=== PATIENT | female | born 1935 | race Caucasian/White ===

== ENCOUNTER 2021-07-04 11:05 | Inpatient (IN) | payer MEDICARE, SELFPAY ==
[2021-07-04] VITALS (13 sets, daily range): BP systolic 115–166; BP diastolic 60–85; PULSE 90–121; RESP 9–36; TEMP 37.8–39.2; O2SAT 72–94; BMI 27.3
--- NOTE | 2021-07-04 11:06 | ED_ITS ---
HPI - SOB/Dyspnea General: Chief Complaint: ER Hold Stated Complaint: SOB Time Seen by Provider: 07/04/21 11:06 History of Present Illness: HPI Narrative: Ms Dietz is an 85-year-old lady without significant past medical or surgical history who presents the emergency department due to shortness of breath and Covid-like symptoms. Her significant other was tested positive about a week ago and lives in the same house. She endorses about 1 week of gradual onset of symptoms including headache, sinus pressure, generalized malaise, aches and pains, diarrhea, shortness of breath, and cough. Initially symptoms were fairly mild however progressively worsening and is now moderate to severe in intensity. Patient does not typically require oxygen and does not have a history of smoking or known lung disease. She was found to have oxygen saturations in the 70s and was placed on supplemental oxygen. She did receive a breathing treatment by EMS however quickly desaturates with oxygen removed and becomes tachypneic. No other significant changes in health, exacerbating or relieving factors identified. Onset (ago): day(s) Context: other Timing: progressively worsening Severity: moderate Exacerbating factors: exertion Relieving factors: oxygen Associated symptoms: Reports cough, myalgias and other Treatment prior to arrival: oxygen and bronchodilator Review of Systems General: Reports: 10 or more systems reviewed and unremarkable except in HPI and below PFSH ED PFSH: Medical History No significant past medical history Surgical History No significant past surgical history Family History Other No significant family history Social History (Updated 07/04/21 @ 17:14 by Daniel Glass MD) Smoking and tobacco status: never smoked Lives independently: Yes Household members: significant other Marital status: Single Physical Exam Const: COMMON NORMALS: alert GENERAL APPEARANCE: cooperative, well developed and ill appearing HENMT: COMMON NORMALS: normocephalic and atraumatic HEAD & SCALP: normocephalic and atraumatic THROAT: posterior oropharynx normal OTHER: Dry mucous membranes Eye: COMMON NORMALS: conjunctivae normal CONJUNCTIVA: Yes conjunctivae normal SCLERA: sclerae normal Neck/C-Spine: COMMON NORMALS: supple GENERAL: Yes trachea midline Resp: COMMON NORMALS: normal respiratory effort EFFORT & INSPECTION: Yes able to speak in complete sentences AUSCULTATION: rhonchi lower bilaterally Cardio: COMMON NORMALS: regular rate and regular rhythm RATE: regular rate RHYTHM: regular rhythm GI: COMMON NORMALS: Soft to palpation PALPATION: Yes Soft to palpation and No Tenderness to palpation present (GI) PERCUSSION: normal to percussion Extremity: GENERAL: Yes normal exam except as noted and No edema Neuro: COMMON NORMALS: moves all extremities SENSORIUM/ORIENTATION: Yes alert and No Orientation impaired Psych: COMMON NORMALS: mental status grossly normal and Normal thought process present THOUGHT PROCESS: Normal thought process present Course ED course: - Patient was seen and evaluated by me at bedside - Patient placed on cardiac monitors, IV access obtained - Initial evaluation notable for ill appearance, supplemental oxygen with respiratory distress - Labs notable for no leukocytosis, normal hemoglobin. Metabolic panel with evidence of dehydration, potassium replenishment ordered. Delta troponin is negative. CRP elevated with normal procalcitonin. Covid positive. - Imaging notable for multifocal pneumonia - Upon serial reexamination after treatment the patient was mildly improved on heated high flow oxygen - Based on patient history, evaluation, labs, and imaging as interpreted the most likely cause of the patient's condition is COVID-19 with acute hypoxic respiratory failure, dehydration, hypokalemia. - The results of ED evaluation were discussed with the patient including plan for admission due to requirement for level of care not available if discharged to prevent significant worsening/deterioration. - Hospitalist service contacted and agreed admit the patient. After discussion D-dimer was added and elevated, therefore CTA was ordered. - Patient was admitted without further deterioration or significant events. Note: Click bubbles or prepopulated benoit in note writing are used for assistance with data collection and billing and are inherently more limited than narrative and other text portions of this note. Please use narrative for additional clinical history and defer to narrative/free test for any case of contradictory information. If information appears in only free text or click bubble it should be considered present or absent as reported. Please contact note expert medical writer for clarifications of clinical information or contradictory information. MDM is a brief summary, contradictory or erroneous seeming information should be clarified and full note should be reviewed. Vital Signs: Vital signs: Vital Signs Temperature 97.6 F 07/09/21 20:00 Pulse Rate 101 H 07/09/21 21:10 Respiratory Rate 20 H 07/09/21 21:10 Blood Pressure 135/82 07/09/21 20:00 Pulse Oximetry 93 07/09/21 21:10 MDM - SOB/Dyspnea Medical Decision Making 85-year-old lady without baseline oxygen requirement presenting with respiratory distress found to be Covid positive. Patient placed on heated high flow oxygen. Admitted for further management. Medical Records I reviewed the patient's medical records. Lab Data I reviewed the patient's lab results. : 07/09/21 05:03 07/09/21 05:03 Labs/Radiology: Radiology Impressions Chest CTA 07/04/21 17:01 IMPRESSION: 1. Negative for pulmonary embolism. 2. Nonspecific scattered airspace disease in both lungs. 3. Commonly reported imaging features of COVID-19 pneumonia are present. Other processes such as influenza pneumonia and organizing pneumonia, as can be seen with drug toxicity and connective tissue disease, can cause a similar imaging pattern. (Reference: Hung) COMMENTS: Consistent with the [place] [employer]'s Incidental Findings Committee white paper (J Am Cody Radiol 2018): Any incidental renal lesion less than 1 cm or classified as too small to characterize, or any incidental cystic renal lesion characterized as simple-appearing, is likely benign. No follow-up imaging is recommended for these lesions per consensus recommendations based on imaging criteria. REFERENCES: Hung Nolasco et al., Radiological Society of [place] Expert Consensus Statement on Reporting Chest CT Findings Related to COVID-19. Endorsed by the Society of Thoracic Radiology, the [place] [employer], and RSNA. Published August 22, 2019. Chest X-Ray 07/09/21 04:00 IMPRESSION: Stable/improved abnormal chest as above. Laboratory Results WBC 8.4 10^3/uL (4.0-10.0) 07/04/21 13:25 RBC 4.92 10^6/uL (4.1-5.3) 07/04/21 13:25 Hgb 14.9 g/dL (11.5-15.3) 07/04/21 13:25 Hct 43.5 % (37.0-47.0) 07/04/21 13:25 MCV 88.4 fl (81-99) 07/04/21 13:25 MCH 30.3 pg (28.0-34.0) 07/04/21 13:25 MCHC 34.3 g/dL (30.0-36.0) 07/04/21 13:25 RDW 13.1 % (12.1-15.1) 07/04/21 13:25 Plt Count 300 10^3/cmm (130-400) 07/04/21 13:25 MPV 9.6 fL (7.4-10.4) 07/04/21 13:25 Neut % (Auto) 83.4 % 07/04/21 13:25 Lymph % (Auto) 13.4 % 07/04/21 13:25 [place] % (Auto) 2.3 % 07/04/21 13:25 Eos % (Auto) 0.0 % 07/04/21 13:25 Baso % (Auto) 0.4 % 07/04/21 13:25 Neut # (Auto) 6.98 10^3/uL (1.8-7.7) 07/04/21 13:25 Lymph # (Auto) 1.1 10^3/uL (0.8-4.8) 07/04/21 13:25 [place] # (Auto) 0.2 10^3/uL (0.2-0.9) 07/04/21 13:25 Eos # (Auto) 0.0 10^3/uL (0.0-0.8) 07/04/21 13:25 Baso # (Auto) 0.0 10^3/uL (0.0-0.1) 07/04/21 13:25 Nucleated RBC % (auto) 0 % 07/04/21 13:25 Nucleated RBCs # 0.0 /100WBC 07/04/21 13:25 Specimen Type Arterial 07/04/21 11:51 Sample Site Brachial, right 07/04/21 11:51 ABG pH 7.44 (7.35-7.45) 07/04/21 11:51 ABG pCO2 32.9 mmHg (35-45) L 07/04/21 11:51 ABG pO2 58.3 mmHg (80.0-100.0) L 07/04/21 11:51 ABG HCO3 22.4 mmol/L (22-26) 07/04/21 11:51 ABG Base Excess -0.9 mmol/L (-2.0-2.0) 07/04/21 11:51 Garcia Test N/a 07/04/21 11:51 Hematocrit 45.5 % (37-47) 07/04/21 11:51 O2 Delivery Device Nrb 07/04/21 11:51 O2 Liters/Min 15.0 % 07/04/21 11:51 Optical Laboratory Manager ID ccc 07/04/21 11:51 Sodium 134 mmol/L (136-145) L 07/04/21 13:25 Potassium 3.2 mmol/L (3.5-5.1) L 07/04/21 13:25 Chloride 95 mmol/L (98-107) L 07/04/21 13:25 Carbon Dioxide 22 mmol/L (22-29) 07/04/21 13:25 Anion Gap 20.2 (5-19) H 07/04/21 13:25 BUN 18 mg/dL (8-23) 07/04/21 13:25 Creatinine 0.6 mg/dL (0.5-0.9) 07/04/21 13:25 GFR Calculation Not Reportable 07/04/21 13:25 Glucose 170 mg/dL (65-115) H 07/04/21 13:25 Calculated Osmolality 284 mOsm/kg (285-295) L 07/04/21 13:25 Calcium 8.2 mg/dL (8.5-10.5) L 07/04/21 13:25 Total Bilirubin 0.6 mg/dL (0.15-1.2) 07/04/21 13:25 AST 57 U/L (0-32) H 07/04/21 13:25 ALT 36 U/L (0-33) H 07/04/21 13:25 Alkaline Phosphatase 63 IU/L (35-105) 07/04/21 13:25 Troponin T Baseline 26 ng/L (0-10) H 07/04/21 13:25 C-Reactive Protein 79.4 mg/L (0.0-4.9) H 07/04/21 13:25 NT-Pro-B Natriuret Pep 145 pg/mL (0-450) 07/04/21 13:25 Total Protein 5.7 g/dL (6.6-8.7) L 07/04/21 13:25 Albumin 3.6 g/dL (3.5-5.2) 07/04/21 13:25 Globulin 2.1 g/dL (1.3-4.6) 07/04/21 13:25 Procalcitonin 0.20 ng/mL (0-0.5) 07/04/21 13:25 Coronavirus 229E (PCR) Not detected (NOT DETECT) 07/04/21 13:25 SARS-CoV-2 (PCR) Detected (NOT DETECT) A 07/04/21 13:25 EKG Data EKG 1: I personally reviewed and interpreted this EKG as follows: EKG Interpretation Date: 07/04/21 EKG interpretation time: 13:25 Interpretation: Twelve-lead EKG shows a regular rhythm at a rate of 117. NH interval 164, cures duration 100, QTc 496. Unclear axis. Interpretation: Sinus tachycardia. Unable to interpret limb leads secondary to baseline wander due to tachypnea EKG 2: I personally reviewed and interpreted this EKG as follows: EKG Interpretation Date: 07/04/21 EKG interpretation time: 16:25 Interpretation: Twelve-lead EKG shows a regular rhythm at a rate of 96. NH interval 170, QRS duration 102, QTc 396. Normal axis. Interpretation: Sinus rhythm. EKG 3: I personally reviewed and interpreted this EKG as follows: EKG Interpretation Date: 07/04/21 EKG interpretation time: 19:03 Interpretation: Twelve-lead EKG shows a regular rhythm at a rate of 96. NH interval 195, QRS duration 100, QTc 401. Normal axis. Interpretation: Sinus rhythm. Discharge Plan Discharge Patient Disposition: Admitted As Inpatient Admit Provider: Daneil Glass Clinical Impression: Acute respiratory failure with hypoxia, COVID-19 Condition: Stable Coding Level of Care Code ED Office Technician for Chg Fwd Exam Comprehensive
--- NOTE | 2021-07-04 11:35 | XRR_ITS ---
PROCEDURE INFORMATION: Exam: XR Chest Exam date and time: 07/04/2021 11:35 AM Age: 85 years old Clinical indication: Shortness of breath; Additional info: Covid TECHNIQUE: Imaging protocol: XR of the chest. Views: 1 view. COMPARISON: No relevant prior studies available. FINDINGS: Lungs: There is increased lung markings and bilateral airspace opacities, consistent with multifocal pneumonia. Pleural spaces: Unremarkable. No pleural effusion. No pneumothorax. Heart/Mediastinum: Mildly enlarged heart. Bones/joints: Degenerative changes of the spine seen. XR/XR chest 1V portable [id number] IMPRESSION: Imaging findings of multifocal pneumonia.
--- NOTE | 2021-07-04 11:35 | ECG_ITS ---
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 Measurements Intervals [place] Rate: 117 P: 47 [place]: 164 QRS: -12 QRSD: 100 T: -84 QT: 426 QTc: 597 Interpretive Statements SINUS TACH[address] ST DEVIATION AND MODERATE T-WAVE ABNORMALITY, CONSIDER INFERIOR ISCHEMIA [-0.1+ mV T-WAVE IN II/aVF] No previous ECG available for comparison Electronically Signed On 07-05-2021 17:01:20 ROBOT OPERATOR by Alina Sullivan M.D. [id number]
[2021-07-04 12:02] LABS: ABG PCO2 32.9 mmHg (35-45); ABG PH Result 7.44 (7.35-7.45); Arterial Blood Gas Hematocrit 45.5 % (37-47); Base Excess ABG -0.9 mmol/L (-2.0-2.0); Blood Gas Sample Site Brachial, right; Blood Gas Sample Type Arterial; HCO3 ABG 22.4 mmol/L (22-26); Oxygen Device NRB; PO2 ABG 58.3 mmHg (80.0-100.0)
[2021-07-04 13:33] LABS: Basophils % 0.4 %; Hematocrit 43.5 % (37.0-47.0); Hemoglobin 14.9 g/dL (11.5-15.3); Lymphocytes # 1.1 10^3/uL (0.8-4.8); Lymphocytes % 13.4 %; Mean Corpuscular HGB Conc 34.3 g/dL (30.0-36.0); Mean Corpuscular Hemoglobin 30.3 pg (28.0-34.0); Mean Corpuscular Volume 88.4 fl (81-99); Mean Platelet Volume 9.6 fL (7.4-10.4); Monocytes # 0.2 10^3/uL (0.2-0.9); Monocytes % 2.3 %; Neutrophils # 6.98 10^3/uL (1.8-7.7); Neutrophils % 83.4 %; Nucleated Red Blood Cells % 0 %; Platelet Count 300 10^3/cmm (130-400); Red Blood Count 4.92 10^6/uL (4.1-5.3); Red Cell Distribution Width 13.1 % (12.1-15.1); White Blood Count 8.4 10^3/uL (4.0-10.0)
--- NOTE | 2021-07-04 13:35 | ECG_ITS ---
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 Measurements Intervals [place] Rate: 96 P: 38 [place]: 170 QRS: -3 QRSD: 102 T: 15 QT: 342 QTc: 434 Interpretive Statements SINUS RHYTHM Compared to ECG 07/04/2021 13:20:42 Sinus tachycardia no longer present T-wave abnormality no longer present Possible ischemia no longer present Electronically Signed On 07-06-2021 8:54:49 COMMERCIAL JOURNEYMAN ELECTRICIAN by Alina Sullivan M.D. [id number]
[2021-07-04 14:07] LABS: Troponin(5th) Baseline 26 ng/L (0-10)
[2021-07-04 14:15] LABS: NT Pro B Type Natriuretic Pept 145 pg/mL (0-450)
[2021-07-04 14:21] LABS: Slide Review Slide Review Perform
[2021-07-04 14:26] LABS: Alanine Aminotransferase 36 U/L (0-33); Albumin Level 3.6 g/dL (3.5-5.2); Alkaline Phosphatase 63 IU/L (35-105); Anion Gap 20.2 (5-19); Aspartate Amino Transferase 57 U/L (0-32); Blood Urea Nitrogen 18 mg/dL (8-23); C Reactive Protein 79.4 mg/L (0.0-4.9); Calcium 8.2 mg/dL (8.5-10.5); Carbon Dioxide 22 mmol/L (22-29); Chloride 95 mmol/L (98-107); Globulin 2.1 g/dL (1.3-4.6); Glucose 170 mg/dL (65-115); Osmolality Calculated 284 mOsm/kg (285-295); Potassium 3.2 mmol/L (3.5-5.1); Sodium 134 mmol/L (136-145); Total Bilirubin 0.6 mg/dL (0.15-1.2); Total Protein 5.7 g/dL (6.6-8.7)
[2021-07-04] MEDS: potassium chloride ER 20 mEq Tablet 40 MEQ PO (14:59)
[2021-07-04] MEDS: sodium chloride 0.9% 500 ML IV (14:59)
[2021-07-04 16:11] LABS: Adenovirus Not Detected (NOT DETECT); Chlamydia Pneumoniae Not Detected (NOT DETECT); Coronavirus 229E,HKU1,NL63,OC4 Not Detected (NOT DETECT); Human Metapneumovirus Not Detected (NOT DETECT); Human Rhinovirus/Enterovirus Not Detected (NOT DETECT); Influenza A Not Detected (NOT DETECT); Influenza A H1 Not Detected (NOT DETECT); Influenza A H1-2009 Not Detected (NOT DETECT); Influenza A H3 Not Detected (NOT DETECT); Influenza B Not Detected (NOT DETECT); Mycoplasma Pneumoniae Not Detected (NOT DETECT); Parainfluenza Virus Type 1 Not Detected (NOT DETECT); Parainfluenza Virus Type 2 Not Detected (NOT DETECT); Parainfluenza Virus Type 3 Not Detected (NOT DETECT); Parainfluenza Virus Type 4 Not Detected (NOT DETECT); Respiratory Syncytial Virus A Not Detected (NOT DETECT); Respiratory Syncytial Virus B Not Detected (NOT DETECT); SARS-COV-2 Detected (NOT DETECT)
[2021-07-04 16:34] LABS: D Dimer 1.71 ug/mIFEU (0-0.59)
[2021-07-04 16:45] LABS: Troponin 5 2HR 29.28 ng/L (0-10)
[2021-07-04 16:47] LABS: Troponin 5 2HR Delta 3.28 ABS# (0-10)
--- NOTE | 2021-07-04 17:01 | CTR_ITS ---
PROCEDURE INFORMATION: Exam: CTA Chest With Contrast Exam date and time: 07/04/2021 5:01 PM Age: 85 years old Clinical indication: Abnormal findings; Abnormal diagnostic tests; Elevated d-dimer; Cough and shortness of breath; Patient HX: Covid+ SOB cough elev d-dimer; Additional info: Elevated ddimer TECHNIQUE: Imaging protocol: Computed tomographic angiography of the chest with contrast. 3D rendering (Not supervised by radiologist): MIP and/or 3D reconstructed images were created by the technologist. Radiation optimization: All CT scans at this facility use at least one of these dose optimization techniques: automated exposure control; mA and/or kV adjustment per patient size (includes targeted exams where dose is matched to clinical indication); or iterative reconstruction. Contrast material: OMNI 350; Contrast volume: 59 ml; Contrast route: INTRAVENOUS (IV); COMPARISON: CR (CHEST, ) 07/04/2021 11:56 AM RADIATION DOSE METRICS: Total DLP (mGy-cm): 489.98 FINDINGS: Pulmonary arteries: Normal. No pulmonary emboli. Aorta: Unremarkable. No aortic aneurysm. No aortic dissection. Lungs: Posterior lower lobe opacities with volume loss may represent atelectasis. Scattered ground-glass parenchymal changes with crazy paving and interstitial thickening apparent. Negative for endobronchial obstruction. No peripheral honeycombing. No significant bronchiectasis. No focal endobronchial lesion. Pleural spaces: Trace bilateral pleural effusions slightly greater on right than left. Negative for pneumothorax. Heart: Unremarkable. No cardiomegaly. No pericardial effusion. Lymph nodes: Unremarkable. No enlarged lymph nodes. Kidneys and ureters: Partially visible simple left renal anterior interpolar cortical cyst. Bones/joints: Unremarkable. No acute fracture. Soft tissues: Unremarkable. CT/CT angio chest PE protcl [id number] IMPRESSION: 1. Negative for pulmonary embolism. 2. Nonspecific scattered airspace disease in both lungs. 3. Commonly reported imaging features of COVID-19 pneumonia are present. Other processes such as influenza pneumonia and organizing pneumonia, as can be seen with drug toxicity and connective tissue disease, can cause a similar imaging pattern. (Reference: Hung) COMMENTS: Consistent with the [place] [employer]'s Incidental Findings Committee white paper (J Am Cody Radiol 2018): Any incidental renal lesion less than 1 cm or classified as too small to characterize, or any incidental cystic renal lesion characterized as simple-appearing, is likely benign. No follow-up imaging is recommended for these lesions per consensus recommendations based on imaging criteria. REFERENCES: Hung Nolasco, et al., Radiological Society of [place] Expert Consensus Statement on Reporting Chest CT Findings Related to COVID-19. Endorsed by the Society of Thoracic Radiology, the [place] [employer], and RSNA. Published August 22, 2019.
--- NOTE | 2021-07-04 17:03 | P.HP_ITS ---
Providers/Chief Complaint Admitting Physician: Daniel Glass Chief Complaint: SOB History of Present Illness Pleasant 85-year-old lady comes in due to progressive shortness of breath, also having associated productive cough, diarrhea, with her significant other with whom she lives recently diagnosed with COVID-19. Her symptoms have been going on for about a week. In ER noted with oxygen saturation 88% on room air, respiratory rate 26, started on heated high flow cannula. Chest x-ray with multifocal pneumonia. Temp 100 Fahrenheit. Heart rate 109. No leukocytosis. Positive COVID-19 PCR. D-dimer 1.71. CRP 79.4. AST 57, ALT 36. Sodium 134, potassium 3.2. Glucose 170. Review of Systems Const: Denies: fever(s), chills, body aches or malaise Eyes: Denies: change in vision or eye redness ENMT: Denies: throat pain, oral sores or ear or mastoid pain Card: Denies: chest pain, edema, pre-syncope or dyspnea on exertion Resp: Denies: dyspnea, productive cough, change in phlegm color or hemoptysis GI: Denies: abdominal pain, nausea, vomiting, diarrhea, constipation, hematochezia or melena : Denies: flank pain, urinary frequency or hematuria Musc: Denies: back pain, joint swelling or joint redness Skin/Breast: Denies: rash, sores or new lesions Neuro: Denies: headache(s), numbness in extremities, weakness in extremities, dizziness, confusion or seizure-like activity Endo: Denies: polyuria or polydipsia Ulices/Lymph: Denies: easy bleeding or purpura All/Imm: Denies: urticaria, throat swelling or tongue swelling Medications/Allergies Home Medications Medication Instructions Recorded Confirmed Last Taken Type No Known Home Medications 07/04/21 07/04/21 Unknown History Allergies Allergy/AdvReac Type Severity Reaction Status Date / Time No Known Allergies Allergy Verified 07/04/21 11:47 PFSH Acute PFSH: Medical History No significant past medical history Surgical History No significant past surgical history Family History Other No significant family history Social History (Updated 07/04/21 @ 17:14 by Daniel Glass MD) Smoking and tobacco status: never smoked Lives independently: Yes Household members: significant other Marital status: Single Vitals/I&O/Wt Last Vital Signs Temp 100.0 F H 07/04/21 11:47 Pulse 109 H 07/04/21 15:03 Resp 20 H 07/04/21 15:03 BP 166/60 07/04/21 15:03 Pulse Ox 93 07/04/21 15:03 Weight last 48 hrs Weight 63.503 kg Physical Exam Const: COMMON NORMALS: no acute distress and patient oriented x3 HENMT: COMMON NORMALS: oropharynx normal OTHER: Dry lips Neck/C-Spine: COMMON NORMALS: no JVD Resp: COMMON NORMALS: normal respiratory effort and clear to auscultation bilaterally AUSCULTATION: clear to auscultation bilaterally Cardio: COMMON NORMALS: no JVD, regular rhythm, S1 normal heart sound present, S2 normal heart sound present and No murmurs present (Cardio) RHYTHM: regular rhythm HEART SOUNDS: S1 normal heart sound present and S2 normal heart sound present GI: COMMON NORMALS: Normal to inspection, nondistended, normoactive bowel sounds present, Soft to palpation and non-tender PALPATION: Yes Soft to palpation Extremity: COMMON NORMALS: no joint enlargement GENERAL: Yes edema (1+) Neuro: COMMON NORMALS: patient oriented x3 and moves all extremities Skin: COMMON NORMALS: no rashes or lesions noted GENERAL SKIN EXAM: no rashes or lesions noted Data : 07/04/21 13:25 07/04/21 13:25 A&P Assessment and plan (1) Acute respiratory failure with hypoxia: Initially on 75% FiO2. Currently on 100% FiO2 heated high flow cannula. Comfortable. Discussed with her severe COVID-19. She is agreeable to start treatment with remdesivir, Decadron. With consideration of addition of Actemra tomorrow depending on response. For now empirically will add Levaquin as well as she has been having productive cough, although procalcitonin is 0.2, though that is a little bit borderline. Chest x-ray with multifocal pneumonia. Will request sputum culture as well. Lovenox DVT prophylaxis. Antitussives. Status: Acute (2) COVID-19: As above for severe COVID-19. Status: Acute Plan Hypokalemia: Replace, check magnesium Elevated D-dimer: Secondary to COVID-19 Attestations Medical Necessity Statement*: Admission of over 2 midnights is going to be needed for assessment and management of severe COVID-19 with hypoxic respiratory failure. Coding Level of Care Code Acute Skin Grader for [facility] Fwd Exam Comprehensive Diagnoses Acute respiratory failure with hypoxia J96.01 COVID-19 U07.1
--- NOTE | 2021-07-04 17:35 | ECG_ITS ---
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 Measurements Intervals [place] Rate: 96 P: 52 [place]: 195 QRS: 9 QRSD: 100 T: 31 QT: 347 QTc: 440 Interpretive Statements SINUS RHYTHM Compared to ECG 07/04/2021 16:19:06 No significant changes Electronically Signed On 07-05-2021 17:05:42 CHIEF MECHANICAL OFFICER by Alina Sullivan M.D. [id number]
[2021-07-04] MEDS: iohexol 350 mg/mL 100 mL Btl IV (18:52)
[2021-07-04] MEDS: dexamethasone 10 mg/mL INJ 6 MG IVP (19:15)
[2021-07-04] MEDS: enoxaparin 40 mg/0.4 mL Syringe SUBCUT (19:19)
[2021-07-04] MEDS: FUROsemide 10 mg/mL SDV 2mL 20 MG IVP (19:19)
[2021-07-04 20:33] LABS: Influenza A by IFA Negative (Negative); Influenza B by IFA Negative (Negative)
[2021-07-04 20:45] LABS: Troponin 5 6HR 29.49 ng/L (0-10)
[2021-07-04 20:47] LABS: Troponin 5 6HR Delta 3.49 ng/L (0-12)
[2021-07-04] MEDS: pantoprazole 40 mg SDV IVP (21:22)
[2021-07-04] MEDS: potassium chloride ER 20 mEq Tablet PO (21:23)
[2021-07-04] MEDS: benzonatate 100 mg Capsule 200 MG PO (21:23)
[2021-07-04] MEDS: acetaminophen 325 mg Tablet 650 MG PO (21:23)
[2021-07-04] MEDS: levoFLOXacin 750 mg Tablet PO (21:23)
--- NOTE | 2021-07-04 23:12 | PC.NURSE ---
Patient arrived from ED at 2100. All patient belongings in bedside cabinet or with patient/on patient table. Belongings in cabinet consist of slippers, clothes, her purse, phone activity therapist, phone, and glasses. Patient educated and updated on orders. Medications given. Patient had a temp upon admit of 102.5 taken orally. Tylenol prn given and ice packs placed. Dr. Rodriges updated on patient temp at 2145 over the phone, and no new orders at this time.
[2021-07-05] VITALS (220 sets, daily range): BP systolic 98–153; BP diastolic 55–103; PULSE 65–150; RESP 13–50; TEMP 36.2–37.1; O2SAT 81–95; BMI 27.7
[2021-07-05 04:39] LABS: Basophils % 0.2 %; Hematocrit 40.4 % (37.0-47.0); Hemoglobin 13.6 g/dL (11.5-15.3); Lymphocytes # 0.8 10^3/uL (0.8-4.8); Lymphocytes % 15.7 %; Mean Corpuscular HGB Conc 33.7 g/dL (30.0-36.0); Mean Corpuscular Volume 89.2 fl (81-99); Mean Platelet Volume 10.1 fL (7.4-10.4); Monocytes # 0.2 10^3/uL (0.2-0.9); Monocytes % 2.8 %; Neutrophils # 4.27 10^3/uL (1.8-7.7); Neutrophils % 80.7 %; Nucleated Red Blood Cells % 0 %; Platelet Count 274 10^3/cmm (130-400); Red Blood Count 4.53 10^6/uL (4.1-5.3); Red Cell Distribution Width 13.2 % (12.1-15.1); White Blood Count 5.3 10^3/uL (4.0-10.0)
[2021-07-05 04:48] LABS: D Dimer 1.65 ug/mIFEU (0-0.59)
[2021-07-05 05:03] LABS: Alanine Aminotransferase 35 U/L (0-33); Alkaline Phosphatase 54 IU/L (35-105); Anion Gap 15.3 (5-19); Aspartate Amino Transferase 51 U/L (0-32); Blood Urea Nitrogen 18 mg/dL (8-23); Carbon Dioxide 24 mmol/L (22-29); Chloride 100 mmol/L (98-107); Globulin 2.4 g/dL (1.3-4.6); Glucose 175 mg/dL (65-115); Magnesium 2.2 mg/dL (1.7-2.3); Osmolality Calculated 288 mOsm/kg (285-295); Phosphorus 2.9 mg/dL (2.5-4.5); Potassium 3.3 mmol/L (3.5-5.1); Sodium 136 mmol/L (136-145); Total Bilirubin 0.5 mg/dL (0.15-1.2); Total Protein 5.4 g/dL (6.6-8.7)
--- NOTE | 2021-07-05 06:20 | PC.NURSE ---
Patient remained stable throughout the night. Alert and oriented. Sinus tachycardia upon arrival to ICU, but most of the night remained normal sinus thereafter. Fever was 102.5 upon arrival and most recent check was 97.8. Patient maintaining oxygen saturation on heated high flow. Had 750ml of urine output since vasquez catheter placement. No bowel movement. Patient states that she is beginning to feel a little better and stronger than when she first came in through the ER. No further concerns or complaints at this time.
[2021-07-05] MEDS: potassium chloride ER 20 mEq Tablet 40 MEQ PO (09:18)
[2021-07-05] MEDS: benzonatate 100 mg Capsule 200 MG PO ×3 (09:18→20:26)
[2021-07-05] MEDS: dexamethasone 10 mg/mL INJ 6 MG IVP (16:56)
[2021-07-05] MEDS: enoxaparin 40 mg/0.4 mL Syringe SUBCUT (16:58)
--- NOTE | 2021-07-05 19:53 | PM.PN ---
Subjective Subjective: Interval history: Feeling slightly better today. Cough is very bothersome. She is trying very hard not to cough but is frequently not succeeding. No nausea vomiting or diarrhea. Vitals/I&O/Wt Last Vital Signs Temp 98.7 F 07/05/21 07:30 Pulse 68 07/05/21 16:51 Resp 28 H 07/05/21 16:51 BP 153/82 07/05/21 16:51 Pulse Ox 89 L 07/05/21 16:51 07/05/21 07/05/21 07/05/21 06:59 14:59 22:59 Intake Total 240 / 720 1046 / 1046 480 / 1526 Output Total 750 / 750 350 / 350 Balance -510 / -30 1046 / 1046 130 / 1176 Weight last 48 hrs Weight 64.41 kg Weight 63.503 kg Physical Exam Const: COMMON NORMALS: no acute distress and patient oriented x3 HENMT: COMMON NORMALS: oropharynx normal OTHER: Dry lips Neck/C-Spine: COMMON NORMALS: no JVD Resp: COMMON NORMALS: normal respiratory effort and clear to auscultation bilaterally AUSCULTATION: clear to auscultation bilaterally Cardio: COMMON NORMALS: no JVD, regular rhythm, S1 normal heart sound present, S2 normal heart sound present and No murmurs present (Cardio) RHYTHM: regular rhythm HEART SOUNDS: S1 normal heart sound present and S2 normal heart sound present GI: COMMON NORMALS: Normal to inspection, nondistended, normoactive bowel sounds present, Soft to palpation and non-tender PALPATION: Yes Soft to palpation Extremity: COMMON NORMALS: no joint enlargement GENERAL: Yes edema (1+) Neuro: COMMON NORMALS: patient oriented x3 and moves all extremities Skin: COMMON NORMALS: no rashes or lesions noted GENERAL SKIN EXAM: no rashes or lesions noted Urinary Catheter Management: [place]: Cath Placed During This Visit: yes Reason for Continuing Indwelling Catheter: Accurate Measurement of Urinary Output in Critically Ill Patients Urinary Catheter Date of Insertion: 07/04/21 Urinary Catheter Time of Insertion: 22:04 Data : 07/05/21 03:45 07/05/21 03:45 A&P Assessment and plan (1) Acute respiratory failure with hypoxia: Initially very high oxygen requirement, elevated CRP. Given Actemra. Oxygen requirement gradually decreasing. Down to as low as 55%. Can transfer out of ICU. Continue remdesivir, Decadron. For now empirically will add Levaquin as well as she has been having productive cough, although procalcitonin is 0.2, though that is a little bit borderline. Chest x-ray with multifocal pneumonia. Lovenox DVT prophylaxis. Encouraged her to ask for antitussives. Status: Acute (2) COVID-19: As above for severe COVID-19. Status: Acute Plan Hypokalemia: Additional replacement. Magnesium is normal. Elevated D-dimer: Secondary to COVID-19. Follow-up D-dimer. Attestations Medical Necessity Statement*: Continue admission for hypoxic respiratory failure with severe COVID-19. Coding Level of Care Code Acute Overlock Collar Setter for Donald Alonso Diagnoses Acute respiratory failure with hypoxia J96.01 COVID-19 U07.1
[2021-07-05] MEDS: pantoprazole 40 mg SDV IVP (20:26)
[2021-07-05] MEDS: levoFLOXacin 750 mg Tablet PO (20:26)
[2021-07-06] VITALS (123 sets, daily range): BP systolic 108–149; BP diastolic 66–90; PULSE 74–103; RESP 16–33; TEMP 36.5–36.7; O2SAT 82–94; BMI 28.1
[2021-07-06 05:29] LABS: Basophils % 0.1 %; Hematocrit 41.2 % (37.0-47.0); Hemoglobin 13.8 g/dL (11.5-15.3); Lymphocytes # 1.1 10^3/uL (0.8-4.8); Mean Corpuscular HGB Conc 33.5 g/dL (30.0-36.0); Mean Corpuscular Hemoglobin 30.2 pg (28.0-34.0); Mean Corpuscular Volume 90.2 fl (81-99); Mean Platelet Volume 9.8 fL (7.4-10.4); Monocytes # 0.2 10^3/uL (0.2-0.9); Neutrophils # 5.78 10^3/uL (1.8-7.7); Neutrophils % 81.5 %; Nucleated Red Blood Cells % 0 %; Platelet Count 365 10^3/cmm (130-400); Red Blood Count 4.57 10^6/uL (4.1-5.3); Red Cell Distribution Width 13.2 % (12.1-15.1); White Blood Count 7.1 10^3/uL (4.0-10.0)
[2021-07-06 06:03] LABS: Alanine Aminotransferase 48 U/L (0-33); Albumin Level 2.9 g/dL (3.5-5.2); Alkaline Phosphatase 88 IU/L (35-105); Aspartate Amino Transferase 55 U/L (0-32); Blood Urea Nitrogen 21 mg/dL (8-23); Calcium 9.5 mg/dL (8.5-10.5); Carbon Dioxide 21 mmol/L (22-29); Chloride 106 mmol/L (98-107); Glucose 133 mg/dL (65-115); Osmolality Calculated 299 mOsm/kg (285-295); Sodium 142 mmol/L (136-145); Total Bilirubin 0.4 mg/dL (0.15-1.2); Total Protein 5.9 g/dL (6.6-8.7)
--- NOTE | 2021-07-06 06:18 | PC.NURSE ---
Shift Note Frequent safety and comfort rounds continue. Orders and/or nursing care completed as indicated. Patient monitored for response to intervention and treatment(s). Education provided includes treatment goals. Patient verbalized understanding of teaching. Patient had an uneventful shift, she remains alert/oriented x4. No wounds or skin issues noted at this time. Hatfield catheter drained 350 mls of urine overnight. Will continue to monitor.
[2021-07-06] MEDS: benzonatate 100 mg Capsule 200 MG PO ×3 (08:56→21:14)
--- NOTE | 2021-07-06 10:19 | PC.CHAP ---
Pastoral Care Encounter/Spiritual Assessment Type of Contact [] Declined table tender visit [] Patient/Family/Request visit [] Outpatient visit [] Follow-up visit [] Physician referral [] Code/Alert [x] Routine visit [] Staff referral [] Actively dying [] Patient sleeping [] Family support [] [] Out of room [] Palliative care [] [] Receiving care in room [] Pre-surgical visit [] Trauma [] Long length of stay [x] ICU visit [x] Other: isolated Relational/Emotional Strength [] Patient feels connected with others/family/visitors/staff [] Distress [] Loneliness/isolation [] Abandonment Spirituality of Patient [] Person of Aline [] Attends Gnosticist of their Aline [] Believes in Prayer [] Reads Bible or Hinduism materials [] There are Spiritual issues to be addressed Sewer Contractor Interventions [x] Prayer [] Active listening [] Non-anxious presence [] Spiritual/emotional support [] Crisis/trauma care [] Spiritual counseling [] Bereavement support [] Provided bereavement packet [] Provided Bible/devotional materials [] Provided toy/stuffed animal, coloring book to patient or family member [] Provided Communion [] Anointing/[place] [] Salvation [x] Completed spiritual assessment [] Other: Impact on Illness or Injury [] Angry [] Fearful [] Anxious [] Often cries [] Exhaustion [] Unable to work [] Unable to attend mandaen [] Unable to walk/stand [] Unable to read [] Unable to drive [] Unable to eat/drink [] Unable to sleep [] Unable to be with family [] Patient intubated [] Other: Summary Time spent with patient
[2021-07-06] MEDS: ipratropium-albuterol 3 mL Neb INHALATION ×2 (14:22→21:18)
--- NOTE | 2021-07-06 14:51 | PC.NURSE ---
Transferred to 2nd floor room 279. Patient resting in bed. Chart left with nursing staff at desk.
[2021-07-06] MEDS: dexamethasone 10 mg/mL INJ 6 MG IVP (17:07)
[2021-07-06] MEDS: enoxaparin 40 mg/0.4 mL Syringe SUBCUT (17:07)
--- NOTE | 2021-07-06 17:42 | P.PN_ITS ---
Subjective Subjective: Interval history: Seen earlier this morning in the ICU while awaiting transfer to floors. Comfortably sitting in bedside chair. Continues to be on heated high flow FiO2 of 60%. Reports some abdominal cramping today. No nausea vomiting or diarrhea. Vitals/I&O/Wt Last Vital Signs Temp 98.1 F 07/06/21 16:00 Pulse 85 07/06/21 16:00 Resp 17 07/06/21 16:00 BP 149/78 07/06/21 16:00 Pulse Ox 93 07/06/21 14:23 07/06/21 07/06/21 07/06/21 06:59 14:59 22:59 Intake Total 200 / 1726 1050 / 1050 Output Total 350 / 700 Balance -150 / 1026 1050 / 1050 Weight last 48 hrs Weight 65.402 kg Weight 64.41 kg Physical Exam Narrative: EXAM NARRATIVE: GEN: Awake, alert and oriented, currently on heated high flow, mildly tachypneic on exam CVS: S1S2 N RS: Coarse crackles to auscultation bilaterally Abd: Soft, nt/nd , bs+ Urinary Catheter Management: [place]: Cath Placed During This Visit: yes Reason for Continuing Indwelling Catheter: Accurate Measurement of Urinary Output in Critically Ill Patients Urinary Catheter Date of Insertion: 07/04/21 Urinary Catheter Time of Insertion: 22:04 Data : 07/06/21 04:49 07/06/21 04:49 A&P Assessment and plan (1) Acute respiratory failure with hypoxia: Related to COVID-19 pneumonia Remdisivir 200mg iv x 1 given on 07/04, thereafter has not received any dosing. Charted that patient had refused. dexamethasone 6mg IVP daily received Actemra x1 on 07/05 Add scheduled duoneb q6h, budesonide q12h empiric levofloxacin Flutter valve/spirometer at bedside trend inflammatory markers including CRP, D dimer, Ferritin CTA negative for PE on 07/04 Status: Acute (2) COVID-19: As above for severe COVID-19. Status: Acute Attestations Medical Necessity Statement*: Needs ongoing admission for IV steroids, received Actemra yesterday, severe COVID-19. Coding Level of Care Code Acute Industrial Engineering Technologist for Donald Alonso Diagnoses Acute respiratory failure with hypoxia J96.01 COVID-19 U07.1
[2021-07-06] MEDS: levoFLOXacin 750 mg Tablet PO (21:14)
[2021-07-06] MEDS: pantoprazole 40 mg SDV IVP (21:14)
[2021-07-06] MEDS: budesonide 0.5 mg/2 mL Neb INHALATION (21:18)
[2021-07-07] VITALS (13 sets, daily range): BP systolic 125–151; BP diastolic 78–88; PULSE 68–93; RESP 17–24; TEMP 36.4–37.1; O2SAT 88–92
[2021-07-07] MEDS: ipratropium-albuterol 3 mL Neb INHALATION ×4 (02:42→21:42)
[2021-07-07 05:09] LABS: Hematocrit 40.1 % (37.0-47.0); Hemoglobin 13.5 g/dL (11.5-15.3); Lymphocytes # 1.1 10^3/uL (0.8-4.8); Lymphocytes % 20.5 %; Mean Corpuscular HGB Conc 33.7 g/dL (30.0-36.0); Mean Corpuscular Hemoglobin 30.1 pg (28.0-34.0); Mean Corpuscular Volume 89.3 fl (81-99); Mean Platelet Volume 9.5 fL (7.4-10.4); Monocytes # 0.2 10^3/uL (0.2-0.9); Monocytes % 3.3 %; Neutrophils # 3.87 10^3/uL (1.8-7.7); Neutrophils % 75.8 %; Nucleated Red Blood Cells % 0 %; Platelet Count 380 10^3/cmm (130-400); Red Blood Count 4.49 10^6/uL (4.1-5.3); Red Cell Distribution Width 13.5 % (12.1-15.1); White Blood Count 5.1 10^3/uL (4.0-10.0)
[2021-07-07 05:34] LABS: D Dimer 1.72 ug/mIFEU (0-0.59)
[2021-07-07 05:40] LABS: C Reactive Protein 18.6 mg/L (0.0-4.9)
[2021-07-07 06:26] LABS: Alanine Aminotransferase 32 U/L (0-33); Albumin Level 2.9 g/dL (3.5-5.2); Alkaline Phosphatase 51 IU/L (35-105); Anion Gap 13.9 (5-19); Aspartate Amino Transferase 33 U/L (0-32); Blood Urea Nitrogen 31 mg/dL (8-23); Calcium 8.7 mg/dL (8.5-10.5); Carbon Dioxide 22 mmol/L (22-29); Chloride 105 mmol/L (98-107); Globulin 2.2 g/dL (1.3-4.6); Glucose 124 mg/dL (65-115); Osmolality Calculated 292 mOsm/kg (285-295); Potassium 3.9 mmol/L (3.5-5.1); Sodium 137 mmol/L (136-145); Total Bilirubin 0.4 mg/dL (0.15-1.2); Total Protein 5.1 g/dL (6.6-8.7)
[2021-07-07] MEDS: budesonide 0.5 mg/2 mL Neb INHALATION ×2 (08:25→21:42)
[2021-07-07] MEDS: benzonatate 100 mg Capsule 200 MG PO ×3 (09:44→20:50)
--- NOTE | 2021-07-07 15:41 | PC.SOCIAL ---
IMM update pg 2 of IMM updated and reviewed w/ patient. Copy provided and Copy placed in chart.
[2021-07-07] MEDS: dexamethasone 10 mg/mL INJ 6 MG IVP (16:27)
[2021-07-07] MEDS: enoxaparin 40 mg/0.4 mL Syringe SUBCUT (16:27)
--- NOTE | 2021-07-07 19:12 | PM.PN ---
Subjective Subjective: Patient continues to be on heated high flow at 60% FiO2 55 L/min. Oxygen saturation between 88 to 92%. Denies any dyspnea. She was able to get out of bed and ambulate in the room for short short distance. CRP trended down from 89-18 today. Vitals/I&O/Wt Last Vital Signs Temp 98.3 F 07/07/21 16:00 Pulse 77 07/07/21 16:00 Resp 20 H 07/07/21 16:00 BP 148/84 07/07/21 16:00 Pulse Ox 88 L 07/07/21 16:00 07/07/21 07/07/21 07/07/21 06:59 14:59 22:59 Intake Total 240 / 240 Output Total 250 / 575 340 / 340 Balance -250 / 595 240 / 240 -340 / -100 Weight last 48 hrs Weight 68.855 kg Weight 65.402 kg Physical Exam Narrative: GEN: Awake, alert and oriented, currently on heated high flow, lying comfortably in bed in no acute distress CVS: S1S2 N RS: Coarse crackles to auscultation bilaterally Abd: Soft, nt/nd , bs+ Urinary Catheter Management: [place]: Cath Placed During This Visit: yes Reason for Continuing Indwelling Catheter: Other Urinary Catheter Date of Insertion: 07/04/21 Urinary Catheter Time of Insertion: 22:04 Data : 07/07/21 04:51 07/07/21 04:51 A&P Assessment and plan (1) Acute respiratory failure with hypoxia: Related to COVID-19 pneumonia Remdisivir 200mg iv x 1 given on 07/04, thereafter has not received any dosing. Charted that patient had refused, however she is willing to resume this treatment. Restarted remdesivir 100 mg IV every 24 today. dexamethasone 6mg IVP daily received Actemra x1 on 07/05, CRP trending down from 89-18 Continue scheduled duoneb q6h, budesonide q12h Continue empiric levofloxacin Flutter valve/spirometer at bedside trend inflammatory markers including CRP, D dimer CTA negative for PE on 07/04 Status: Acute (2) COVID-19: As above for severe COVID-19. Status: Acute Plan Disposition plan: Return home with home health when ready Attestations Medical Necessity Statement*: Patient needs ongoing hospitalization given high FiO2 requirements, continues to be on heated high flow, attempt to wean down Coding Level of Care Code Acute Data Conversion Developer for Chg Fwd Diagnoses Acute respiratory failure with hypoxia J96.01 COVID-19 U07.1
[2021-07-07] MEDS: levoFLOXacin 750 mg Tablet PO (20:50)
[2021-07-07] MEDS: pantoprazole 40 mg SDV IVP (20:50)
[2021-07-08] VITALS (12 sets, daily range): BP systolic 133–157; BP diastolic 81–94; PULSE 76–100; RESP 16–32; TEMP 36.7–37.1; O2SAT 90–92
--- NOTE | 2021-07-08 00:23 | PC.NURSE ---
0015 Pt resting with HOB semi fowlers. O2 in use ar 55L at 60% heated hi reza. No cough noted. Resp E/U.
--- NOTE | 2021-07-08 02:38 | PC.NURSE ---
0200 Pt sitting up awake in bed. No distress. Denies requests.
[2021-07-08] MEDS: ipratropium-albuterol 3 mL Neb INHALATION ×4 (02:59→20:59)
--- NOTE | 2021-07-08 04:00 | PC.NURSE ---
0400 Resting in bed on left side. No distess noted. O2 in use.
[2021-07-08] MEDS: benzonatate 100 mg Capsule 200 MG PO ×3 (08:39→22:04)
[2021-07-08] MEDS: budesonide 0.5 mg/2 mL Neb INHALATION ×2 (09:22→20:59)
--- NOTE | 2021-07-08 11:50 | PC.NURSE ---
Asked Dr Collier if we can advance patient's diet? she is on clear liquids. also can we remove her vasquez catheter?
--- NOTE | 2021-07-08 12:22 | PC.NURSE ---
Per Dr Collier, ok at advance diet and removed vasquez catheter. ad copy writer put orders in.
--- NOTE | 2021-07-08 17:00 | P.PN_ITS ---
Subjective Subjective: currently on heated high flow at 50% FiO2 45 L/min. Oxygen saturation between 88 to 92%. Denies any dyspnea. Advanced diet to regular today. Vitals/I&O/Wt Last Vital Signs Temp 98.1 F 07/08/21 14:48 Pulse 83 07/08/21 15:38 Resp 18 07/08/21 15:38 BP 146/81 07/08/21 14:48 Pulse Ox 91 07/08/21 15:38 07/08/21 07/08/21 07/08/21 06:59 14:59 22:59 Intake Total 600 / 600 Output Total 700 / 1040 200 / 200 Balance -700 / -800 400 / 400 Weight last 48 hrs Weight 67.767 kg Weight 68.855 kg Physical Exam Narrative: GEN: Awake, alert and oriented, currently on heated high flow, lying comfortably in bed in no acute distress CVS: S1S2 N RS: Coarse crackles to auscultation bilaterally Abd: Soft, nt/nd , bs+ Urinary Catheter Management: [place]: Cath Placed During This Visit: yes, but has since been removed by the nurse Reason for Continuing Indwelling Catheter: Decision to DC Catheter Urinary Catheter Date of Insertion: 07/04/21 Urinary Catheter Time of Insertion: 22:04 Date Urinary Catheter Removed: 07/08/21 Time Urinary Catheter Discontinued: 13:45 Data : 07/07/21 04:51 07/07/21 04:51 A&P Assessment and plan (1) Acute respiratory failure with hypoxia: Related to COVID-19 pneumonia Remdisivir 200mg iv x 1 given on 07/04, thereafter has not received any dosing. Patient refused treatment with remdisivir when offered again on 07/07. dexamethasone 6mg IVP daily received Actemra x1 on 07/05, CRP trending down from 89-18 Continue scheduled duoneb q6h, budesonide q12h Continue empiric levofloxacin Flutter valve/spirometer at bedside trend inflammatory markers including CRP, D dimer CTA negative for PE on 07/04 Continues to have high oxygen requirements, on heated high flow, crackles on exam today, trial of lasix 40mg iv today. Check BNP and limited echocardiogram. 02 goal, sat >88% CXR in am Status: Acute (2) COVID-19: As above for severe COVID-19. Status: Acute Plan Disposition plan: Return home with home health when ready Attestations Medical Necessity Statement*: continues to be on heated high flow, slowly titrating down Coding Level of Care Code Acute Solar Field Installation Crew Member for Donald Alonso Diagnoses Acute respiratory failure with hypoxia J96.01 COVID-19 U07.1
[2021-07-08] MEDS: FUROsemide 10 mg/mL SDV 4mL 40 MG IVP (17:31)
[2021-07-08] MEDS: enoxaparin 40 mg/0.4 mL Syringe SUBCUT (17:31)
[2021-07-08] MEDS: dexamethasone 10 mg/mL INJ 6 MG IVP (17:31)
[2021-07-08] MEDS: pantoprazole DR 40 mg Tablet PO (22:04)
[2021-07-08] MEDS: levoFLOXacin 750 mg Tablet PO (22:04)
[2021-07-09] VITALS (17 sets, daily range): BP systolic 109–142; BP diastolic 68–82; PULSE 60–101; RESP 17–20; TEMP 36.4–36.9; O2SAT 90–95
[2021-07-09] MEDS: ipratropium-albuterol 3 mL Neb INHALATION ×4 (02:20→21:00)
--- NOTE | 2021-07-09 04:00 | XR_ITS ---
WS: [id number] XR chest 1V portable [id number] REASON FOR EXAM: follow up COVID infiltrates FINDINGS: Compared to the examination of 07/04/2021, there has been partial resolving of the opacities in the rig ht lung. Passive disease in the left lower lung are unchanged. The reticular and hazy opacities along the late ral margin of the left lung appears somewhat more dense and confluent than on the previous examinatio n. This may be projection. XR/XR chest 1V portable [id number] IMPRESSION: Stable/improved abnormal chest as above.
--- NOTE | 2021-07-09 04:08 | PC.NURSE ---
0400 resting in semi fowlers position. No distress.
[2021-07-09 05:23] LABS: Basophils % 0.2 %; Eosinophils % 0.3 %; Hematocrit 43.7 % (37.0-47.0); Hemoglobin 14.6 g/dL (11.5-15.3); Lymphocytes # 1.4 10^3/uL (0.8-4.8); Lymphocytes % 23.5 %; Mean Corpuscular HGB Conc 33.4 g/dL (30.0-36.0); Mean Corpuscular Volume 89.7 fl (81-99); Mean Platelet Volume 9.4 fL (7.4-10.4); Monocytes # 0.3 10^3/uL (0.2-0.9); Monocytes % 4.4 %; Neutrophils # 4.23 10^3/uL (1.8-7.7); Neutrophils % 71.1 %; Nucleated Red Blood Cells % 0 %; Platelet Count 342 10^3/cmm (130-400); Red Blood Count 4.87 10^6/uL (4.1-5.3); Red Cell Distribution Width 13.5 % (12.1-15.1)
[2021-07-09 06:00] LABS: Alanine Aminotransferase 56 U/L (0-33); Albumin Level 3.1 g/dL (3.5-5.2); Alkaline Phosphatase 50 IU/L (35-105); Anion Gap 15.5 (5-19); Aspartate Amino Transferase 59 U/L (0-32); Blood Urea Nitrogen 30 mg/dL (8-23); C Reactive Protein 4.9 mg/L (0.0-4.9); Calcium 9.3 mg/dL (8.5-10.5); Carbon Dioxide 21 mmol/L (22-29); Chloride 103 mmol/L (98-107); Globulin 2.3 g/dL (1.3-4.6); Glucose 115 mg/dL (65-115); NT Pro B Type Natriuretic Pept 156 pg/mL (0-450); Osmolality Calculated 289 mOsm/kg (285-295); Potassium 3.5 mmol/L (3.5-5.1); Sodium 136 mmol/L (136-145); Total Bilirubin 0.6 mg/dL (0.15-1.2); Total Protein 5.4 g/dL (6.6-8.7)
--- NOTE | 2021-07-09 07:44 | PC.SOCIAL ---
Addendum entered by Radha Willis RN 07/10/21 07:47: copy given to patient Original Note: IMM UPDATED IMM dated and initialed and copy put in chart
[2021-07-09] MEDS: budesonide 0.5 mg/2 mL Neb INHALATION ×2 (08:45→21:00)
[2021-07-09] MEDS: benzonatate 100 mg Capsule 200 MG PO ×3 (09:42→21:02)
[2021-07-09] MEDS: enoxaparin 40 mg/0.4 mL Syringe SUBCUT (17:27)
[2021-07-09] MEDS: dexamethasone 10 mg/mL INJ 6 MG IVP (17:28)
--- NOTE | 2021-07-09 18:31 | P.PN_ITS ---
Subjective Subjective: Continues to be on heated high flow 50% FiO2. Chest x-ray look stable to improving. Lower extremity edema noted. Echocardiogram taken, currently pending. Starting standing Lasix. Vitals/I&O/Wt Last Vital Signs Temp 97.9 F 07/09/21 15:46 Pulse 83 07/09/21 15:46 Resp 18 07/09/21 15:46 BP 109/68 07/09/21 15:46 Pulse Ox 93 07/09/21 15:46 07/09/21 07/09/21 07/09/21 06:59 14:59 22:59 Intake Total 240 / 240 Balance 240 / 240 Weight last 48 hrs Weight 68.538 kg Weight 67.767 kg Physical Exam Narrative: GEN: Awake, alert and oriented, currently on heated high flow, lying comfortably in bed in no acute distress CVS: S1S2 N RS: Coarse crackles to auscultation bilaterally Abd: Soft, nt/nd , bs+ Urinary Catheter Management: [place]: Cath Placed During This Visit: yes, but has since been removed by the nurse Reason for Continuing Indwelling Catheter: Decision to DC Catheter Urinary Catheter Date of Insertion: 07/04/21 Urinary Catheter Time of Insertion: 22:04 Date Urinary Catheter Removed: 07/08/21 Time Urinary Catheter Discontinued: 13:45 Data : 07/09/21 05:03 07/09/21 05:03 A&P Assessment and plan (1) Acute respiratory failure with hypoxia: Related to COVID-19 pneumonia Remdisivir 200mg iv x 1 given on 07/04, thereafter has not received any dosing. Patient refused treatment with remdisivir when offered again on 07/07. dexamethasone 6mg IVP daily received Actemra x1 on 07/05, CRP trending down from 89-18 Continue scheduled duoneb q6h, budesonide q12h Continue empiric levofloxacin Flutter valve/spirometer at bedside trend inflammatory markers including CRP, D dimer CTA negative for PE on 07/04 Continues to have high oxygen requirements, on heated high flow, crackles on exam today, trial of lasix 40mg iv today. Check BNP and limited echocardiogram. 02 goal, sat >88% Chest x-ray shows improving infiltrates. CRP normalized now at 4.9, however continues to have increased extremely high oxygen requirements Plan for today: Awaiting echocardiogram, start standing Lasix 40 mg IV daily due to increasing lower extremity edema, component of pulmonary edema may be contributing. Status: Acute (2) COVID-19: As above for severe COVID-19. Status: Acute Plan Disposition plan: Return home with home health when ready Attestations Medical Necessity Statement*: Ongoing treatment for COVID-19 pneumonia Coding Level of Care Code Acute Senior Foreman for Donald Alonso Diagnoses Acute respiratory failure with hypoxia J96.01 COVID-19 U07.1
[2021-07-09] MEDS: FUROsemide 10 mg/mL SDV 4mL 40 MG IVP (19:49)
[2021-07-09] MEDS: levoFLOXacin 750 mg Tablet PO (21:02)
[2021-07-09] MEDS: pantoprazole DR 40 mg Tablet PO (21:02)
[2021-07-10] VITALS (15 sets, daily range): BP systolic 109–133; BP diastolic 71–81; PULSE 62–95; RESP 18–24; TEMP 36.4–37; O2SAT 90–98
[2021-07-10] MEDS: ipratropium-albuterol 3 mL Neb INHALATION ×4 (03:04→21:27)
--- NOTE | 2021-07-10 07:00 | USCV_ITS ---
Anna Dietz Age: 85 Gender: F : 1935 Exam Date: 07/10/2021 06:51 Ordering Phys: Janneth Collier MD Technologist: JONG Exam Location: [facility] – [place] Indication: ESTIMATE EF BP: 111 / 73 HR: 86 Rhythm: Sinus Technical Quality: Technically difficult study MEASUREMENTS (Male / Female) Normal Values 2D ECHO LV Diastolic Diameter PLAX 2.1 cm 4.2 - 5.9 / 3.9 - 5.3 cm LV Systolic Diameter PLAX 1.5 cm IVS Diastolic Thickness 1.4 cm 0.6 - 1.0 / 0.6 - 0.9 cm IVS Systolic Thickness 1.3 cm LVPW Diastolic Thickness 1.5 cm 0.6 - 1.0 / 0.6 - 0.9 cm LVPW Systolic Thickness 1.4 cm LVOT Diameter 2.0 cm LV Ejection Fraction 2D Teich 61.1 % LV Ejection Fraction MOD 2C 53.5 % LV Ejection Fraction 2C AL 52.9 % LA Diameter 3.0 cm Aorta at Sinotubular Diameter 2.4 cm M-MODE Aortic Annulus Diameter 3.1 cm LA Ao Ratio MM 1.1 MV E Point Septal Separation 0.8 cm DOPPLER AV Peak Velocity 83.0 cm/s LVOT Peak Velocity 84.0 cm/s AV Area Cont Eq vti 2.8 cm squared AV Area Cont Eq pk 3.3 cm squared MV Area PHT 3.7 cm squared Mitral E to A Ratio 0.5 MV E' Velocity 26.3 cm/s Mitral E to MV E' Ratio 7.6 Mitral E to LV E' Lateral Ratio 6.3 Mitral E to LV E' Septal Ratio 9.7 TV Peak E Velocity 55.0 cm/s Right Atrial Pressure 3.0 mmHg RV Acceleration Time 0.1 s RV Ejection Time 0.3 s RV AcT/ET 0.5 FINDINGS Left Ventricle Normal left ventricular size. LV systolic function is normal with EF of 55-60%. No regional wall motion abnormalities. Grade 1 diastolic dysfunction Right Ventricle Grossly normal Right Atrium Not well visualized Left Atrium Not well visualized Mitral Valve Grossly normal. Aortic Valve Not well visualized. No significant aortic stenosis is seen. Mild aortic regurgitation Tricuspid Valve Not well visualized. Insufficient TR jet to calculate RVSP Pulmonic Valve Not well visualized Pericardium Normal pericardium without effusion. Aorta Normal ascending aorta dimension. CONCLUSIONS Technically limited quality echocardiogram because of poor ultrasonic windows LV systolic function is normal with EF of 55-60% Grade 1 diastolic dysfunction Valvular structures are not well visualized. Mild aortic regurgitation No comparison studies are available Ronnie Hilario MD (Electronically Signed) Final Date: 10 July 2021 17:09 S
[2021-07-10] MEDS: budesonide 0.5 mg/2 mL Neb INHALATION ×2 (08:01→21:27)
[2021-07-10] MEDS: benzonatate 100 mg Capsule 200 MG PO ×3 (08:36→20:27)
--- NOTE | 2021-07-10 16:43 | PM.PN ---
Subjective Subjective: feels improved, breathing is easier, transitioned to HFNC at ~8lpm, tolerating well so far. LE edema appears improving. Vitals/I&O/Wt Last Vital Signs Temp 98.1 F 07/10/21 12:00 Pulse 88 07/10/21 14:29 Resp 18 07/10/21 14:29 BP 109/71 07/10/21 12:00 Pulse Ox 95 07/10/21 14:29 07/10/21 07/10/21 07/10/21 06:59 14:59 22:59 Intake Total 620 / 860 480 / 480 Output Total 1100 / 1100 Balance -480 / -240 480 / 480 Weight last 48 hrs Weight 67.132 kg Weight 68.538 kg Physical Exam Narrative: GEN: Awake, alert and oriented, no acute distress , sitting in chair CVS: S1S2 N RS: CTA B/L all areas Abd: Soft, nt/nd , bs+ WRITING CENTER DIRECTOR: no focal neuro deficits Urinary Catheter Management: [place]: Cath Placed During This Visit: yes, but has since been removed by the nurse Reason for Continuing Indwelling Catheter: Decision to DC Catheter Urinary Catheter Date of Insertion: 07/04/21 Urinary Catheter Time of Insertion: 22:04 Date Urinary Catheter Removed: 07/08/21 Time Urinary Catheter Discontinued: 13:45 Data : 07/09/21 05:03 07/09/21 05:03 A&P Assessment and plan (1) Acute respiratory failure with hypoxia: Related to COVID-19 pneumonia Remdisivir 200mg iv x 1 given on 07/04, thereafter has not received any dosing. Patient refused treatment with remdisivir when offered again on 07/07. dexamethasone 6mg IVP daily received Actemra x1 on 07/05, CRP now normalized aat 4.9 Continue scheduled duoneb q6h, budesonide q12h Continue empiric levofloxacin for today Flutter valve/spirometer at bedside CTA negative for PE on 07/04 Echo taken, pending 02 requirements trending down today, transitioned fron heated high flow to HFNC. If continues to do well, anticipate discharge over the next 24-48 hrs Status: Acute (2) COVID-19: As above for severe COVID-19. Status: Acute Plan Disposition plan: Return home with home health when ready Attestations Medical Necessity Statement*: improving 02 needs, trending down today to HFNC, monitor for continued improvement over next 24 hrs Coding Level of Care Code Acute Field Artillery Crewmember for Chg Fwd Diagnoses Acute respiratory failure with hypoxia J96.01 COVID-19 U07.1
[2021-07-10] MEDS: enoxaparin 40 mg/0.4 mL Syringe SUBCUT (17:28)
[2021-07-10] MEDS: dexamethasone 10 mg/mL INJ 6 MG IVP (17:28)
[2021-07-10] MEDS: FUROsemide 10 mg/mL SDV 4mL 40 MG IVP (18:45)
--- NOTE | 2021-07-10 20:00 | PC.NURSE ---
Patient oxygen demands decreased throughout the shift from 45L, 50% to 6 L NC. Patient saturations are stable and lung sounds diminished but clear. Patient had great appetite. Vital signs stable. Report given to INEZ Sprague.
[2021-07-10] MEDS: pantoprazole DR 40 mg Tablet PO (20:27)
[2021-07-10] MEDS: levoFLOXacin 750 mg Tablet PO (20:27)
[2021-07-11] VITALS (13 sets, daily range): BP systolic 108–134; BP diastolic 61–85; PULSE 67–108; RESP 16–20; TEMP 36.5–36.8; O2SAT 90–97
[2021-07-11] MEDS: ipratropium-albuterol 3 mL Neb INHALATION ×4 (03:30→21:15)
[2021-07-11] MEDS: benzonatate 100 mg Capsule 200 MG PO ×3 (08:22→20:39)
[2021-07-11] MEDS: budesonide 0.5 mg/2 mL Neb INHALATION ×2 (09:07→21:15)
[2021-07-11] MEDS: dexamethasone 10 mg/mL INJ 6 MG IVP (17:10)
[2021-07-11] MEDS: enoxaparin 40 mg/0.4 mL Syringe SUBCUT (17:10)
--- NOTE | 2021-07-11 17:15 | PC.NURSE ---
Patient is currently on 4 L of oxygen NC. Saturations are within limits and breath sounds are good. Patient is getting up independently without issues. Vital signs stable. Will continue to monitor and give report to night nurse.
--- NOTE | 2021-07-11 17:53 | PM.PN ---
Subjective Subjective: No new complaints feeling well. Daughter will be healer from outside of town tomorrow to pick patient up. Therefore could not be discharged today. Vitals/I&O/Wt Last Vital Signs Temp 98.1 F 07/11/21 16:00 Pulse 75 07/11/21 16:00 Resp 18 07/11/21 16:00 BP 134/85 07/11/21 16:00 Pulse Ox 97 07/11/21 16:00 07/11/21 07/11/21 07/11/21 06:59 14:59 22:59 Intake Total 160 / 640 840 / 840 Output Total 1000 / 1000 Balance -840 / -360 840 / 840 Weight last 48 hrs Weight 69.944 kg Weight 67.132 kg Physical Exam Narrative: GEN: Awake, alert and oriented, no acute distress , sitting in chair CVS: S1S2 N RS: CTA B/L all areas Abd: Soft, nt/nd , bs+ CEMENT RAILROAD CAR LOADER: no focal neuro deficits Urinary Catheter Management: [place]: Cath Placed During This Visit: yes, but has since been removed by the nurse Reason for Continuing Indwelling Catheter: Decision to DC Catheter Urinary Catheter Date of Insertion: 07/04/21 Urinary Catheter Time of Insertion: 22:04 Date Urinary Catheter Removed: 07/08/21 Time Urinary Catheter Discontinued: 13:45 Data : 07/09/21 05:03 07/09/21 05:03 A&P Assessment and plan (1) Acute respiratory failure with hypoxia: Related to COVID-19 pneumonia Remdisivir 200mg iv x 1 given on 07/04, thereafter has not received any dosing. Patient refused treatment with remdisivir when offered again on 07/07. dexamethasone 6mg IVP daily received Actemra x1 on 07/05, CRP now normalized aat 4.9 Continue scheduled duoneb q6h, budesonide q12h Continue empiric levofloxacin for today Flutter valve/spirometer at bedside CTA negative for PE on 07/04 Echo taken, pending 02 requirements trending down today, transitioned fron heated high flow to HFNC. If continues to do well, anticipate discharge over the next 24-48 hrs Status: Acute (2) COVID-19: As above for severe COVID-19. Status: Acute Plan Disposition plan: Return home with home health when ready Attestations Medical Necessity Statement*: improving today, down to 5lpm, daughter lives 7 hrs away and will be dirving in tomorrow to be able to package pick up the patient and stay with her next few days, Likely planned discharge tomorrow Coding Level of Care Code Acute Grit Blaster for Donald Alonso Diagnoses Acute respiratory failure with hypoxia J96.01 COVID-19 U07.1
[2021-07-11] MEDS: FUROsemide 10 mg/mL SDV 4mL 40 MG IVP (18:37)
[2021-07-11] MEDS: pantoprazole DR 40 mg Tablet PO (20:39)
[2021-07-11] MEDS: levoFLOXacin 750 mg Tablet PO (20:39)
[2021-07-12] VITALS (12 sets, daily range): BP systolic 117–124; BP diastolic 75–78; PULSE 96–110; RESP 16–22; TEMP 36.5–36.8; O2SAT 86–94
[2021-07-12] MEDS: ipratropium-albuterol 3 mL Neb INHALATION ×3 (02:37→14:28)
[2021-07-12] MEDS: budesonide 0.5 mg/2 mL Neb INHALATION (08:19)
[2021-07-12] MEDS: benzonatate 100 mg Capsule 200 MG PO (08:41)
--- NOTE | 2021-07-12 11:52 | PC.NURSE ---
Discharge paperwork and teaching given to patient, all questions were answered at this time. IV discontinued. Medications are being sent to patients pharmacy. Oxygen delivered to patients bedside. Patients daughter is picking up patient.
--- NOTE | 2021-07-12 18:16 | PM.DCS ---
Discharge Providers Date of Admission: 07/04/21 15:23 Date of Discharge: July 12, 2021 Attending Provider at Admission: Daniel Glass Attending Provider at Discharge: Janneth Collier MD Diagnoses at Discharge Discharge Diagnosis (1) Acute respiratory failure with hypoxia: Status: Acute (2) COVID-19: Status: Acute Reason for Visit Reason for Visit: SOB Hospital Course Hospital Course 85-year-old lady admitted due to progressive shortness of breath, also having associated productive cough, diarrhea, with her significant other with whom she lives recently diagnosed with COVID-19. Her symptoms had been going on for about a week. In ER noted with oxygen saturation 88% on room air, respiratory rate 26, started on heated high flow cannula. Chest x-ray with multifocal pneumonia. She received treatment for covid 19 pneumonia with dexamethasone throughout her hospital stay and Actemra on 07/05. She refused treatment with Remdisivir. Nebulization and empiric abx were continued. She improved during admission, able to be weaned down from heated high flow to NC 4-6 lpm at discharge. Home 02 was arranged. She is being discharged with inhalers, eliquis 2.5mg BID ppx for 10 days and Prednisone taper. She denies any complaints today and is eager to return home with her daughter. Physical Exam Narrative: GEN: Awake, alert and oriented, no acute distress CVS: S1S2 N RS: CTA B/L Abd: Soft, nt/nd , bs+ [employer]: no focal neuro deficits Urinary Catheter Management: [place]: Cath Placed During This Visit: yes, but has since been removed by the nurse Reason for Continuing Indwelling Catheter: Decision to DC Catheter Urinary Catheter Date of Insertion: 07/04/21 Urinary Catheter Time of Insertion: 22:04 Date Urinary Catheter Removed: 07/08/21 Time Urinary Catheter Discontinued: 13:45 Discharge Data Studies Completed and Pending Completed Studies During Hospitalization Category Date Time Status CTA PE [CT angio chest PE protcl [id number]] Urgent Cat Scan 07/04/21 17:01 Completed CXRP [XR chest 1V portable [id number]] AM LABS Exams 07/09/21 04:00 Completed XR chest 1V portable [id number] Urgent Exams 07/04/21 11:35 Completed CV. echo complete* [id number] Routine Ultrasound 07/10/21 07:00 Completed Radiology Impressions Chest CTA 07/04/21 17:01 IMPRESSION: 1. Negative for pulmonary embolism. 2. Nonspecific scattered airspace disease in both lungs. 3. Commonly reported imaging features of COVID-19 pneumonia are present. Other processes such as influenza pneumonia and organizing pneumonia, as can be seen with drug toxicity and connective tissue disease, can cause a similar imaging pattern. (Reference: Hung) COMMENTS: Consistent with the [employer]'s Incidental Findings Committee white paper (J Am Cody Radiol 2018): Any incidental renal lesion less than 1 cm or classified as too small to characterize, or any incidental cystic renal lesion characterized as simple-appearing, is likely benign. No follow-up imaging is recommended for these lesions per consensus recommendations based on imaging criteria. REFERENCES: Hung Nolasco, et al., Rad[employer] Society of [place] Expert Consensus Statement on Reporting Chest CT Findings Related to COVID-19. Endorsed by the Society of [employer]acic Radiology, the [employer] [employer], and [employer]NA. Published August 22, 2019. Chest X-Ray 07/09/21 04:00 IMPRESSION: Stable/improved abnormal chest as above. Laboratory Results WBC 6.0 10^3/uL (4.0-10.0) 07/09/21 05:03 RBC 4.87 10^6/uL (4.1-5.3) 07/09/21 05:03 Hgb 14.6 g/dL (11.5-15.3) 07/09/21 05:03 Hct 43.7 % (37.0-47.0) 07/09/21 05:03 MCV 89.7 fl (81-99) 07/09/21 05:03 MCH 30.0 pg (28.0-34.0) 07/09/21 05:03 MCHC 33.4 g/dL (30.0-36.0) 07/09/21 05:03 RDW 13.5 % (12.1-15.1) 07/09/21 05:03 Plt Count 342 10^3/cmm (130-400) 07/09/21 05:03 MPV 9.4 fL (7.4-10.4) 07/09/21 05:03 Neut % (Auto) 71.1 % 07/09/21 05:03 Lymph % (Auto) 23.5 % 07/09/21 05:03 [place] % (Auto) 4.4 % 07/09/21 05:03 Eos % (Auto) 0.3 % 07/09/21 05:03 Baso % (Auto) 0.2 % 07/09/21 05:03 Neut # (Auto) 4.23 10^3/uL (1.8-7.7) 07/09/21 05:03 Lymph # (Auto) 1.4 10^3/uL (0.8-4.8) 07/09/21 05:03 [place] # (Auto) 0.3 10^3/uL (0.2-0.9) 07/09/21 05:03 Eos # (Auto) 0.0 10^3/uL (0.0-0.8) 07/09/21 05:03 Baso # (Auto) 0.0 10^3/uL (0.0-0.1) 07/09/21 05:03 Nucleated RBC % (auto) 0 % 07/09/21 05:03 Nucleated RBCs # 0.0 /100WBC 07/09/21 05:03 D-Dimer 1.72 ug/mIFEU (0-0.59) H 07/07/21 04:51 Specimen Type Arterial 07/04/21 11:51 Sample Site Brachial, right 07/04/21 11:51 ABG pH 7.44 (7.35-7.45) 07/04/21 11:51 ABG pCO2 32.9 mmHg (35-45) L 07/04/21 11:51 ABG pO2 58.3 mmHg (80.0-100.0) L 07/04/21 11:51 ABG HCO3 22.4 mmol/L (22-26) 07/04/21 11:51 ABG Base Excess -0.9 mmol/L (-2.0-2.0) 07/04/21 11:51 Garcia Test N/a 07/04/21 11:51 Hematocrit 45.5 % (37-47) 07/04/21 11:51 O2 Delivery Device Nrb 07/04/21 11:51 O2 Liters/Min 15.0 % 07/04/21 11:51 Supervisor Endless Track Vehicle ID ccc 07/04/21 11:51 Sodium 136 mmol/L (136-145) 07/09/21 05:03 Potassium 3.5 mmol/L (3.5-5.1) 07/09/21 05:03 Chloride 103 mmol/L (98-107) 07/09/21 05:03 Carbon Dioxide 21 mmol/L (22-29) L 07/09/21 05:03 Anion Gap 15.5 (5-19) 07/09/21 05:03 BUN 30 mg/dL (8-23) H 07/09/21 05:03 Creatinine 0.6 mg/dL (0.5-0.9) 07/09/21 05:03 GFR Calculation Not Reportable 07/09/21 05:03 Glucose 115 mg/dL (65-115) 07/09/21 05:03 Calculated Osmolality 289 mOsm/kg (285-295) 07/09/21 05:03 Calcium 9.3 mg/dL (8.5-10.5) 07/09/21 05:03 Phosphorus 2.9 mg/dL (2.5-4.5) 07/05/21 03:45 Magnesium 2.2 mg/dL (1.7-2.3) 07/05/21 03:45 Total Bilirubin 0.6 mg/dL (0.15-1.2) 07/09/21 05:03 AST 59 U/L (0-32) H 07/09/21 05:03 ALT 56 U/L (0-33) H 07/09/21 05:03 Alkaline Phosphatase 50 IU/L (35-105) 07/09/21 05:03 Troponin T Baseline 26 ng/L (0-10) H 07/04/21 13:25 Troponin T 120 Minute 29.28 ng/L (0-10) H 07/04/21 16:09 Delta Troponin T 3.28 ABS# (0-10) 07/04/21 16:09 Troponin T Hi Sens 6Hr 29.49 ng/L (0-10) H 07/04/21 19:22 Troponin T Hi Sens 6Hr Delta 3.49 ng/L (0-12) 07/04/21 19:22 C-Reactive Protein 4.9 mg/L (0.0-4.9) 07/09/21 05:03 NT-Pro-B Natriuret Pep 156 pg/mL (0-450) 07/09/21 05:03 Total Protein 5.4 g/dL (6.6-8.7) L 07/09/21 05:03 Albumin 3.1 g/dL (3.5-5.2) L 07/09/21 05:03 Globulin 2.3 g/dL (1.3-4.6) 07/09/21 05:03 Procalcitonin 0.20 ng/mL (0-0.5) 07/04/21 13:25 Coronavirus 229E (PCR) Not detected (NOT DETECT) 07/04/21 13:25 Influenza Type A Ag Negative (Negative) 07/04/21 19:20 Influenza Type B Ag Negative (Negative) 07/04/21 19:20 SARS-CoV-2 (PCR) Detected (NOT DETECT) A 07/04/21 13:25 Vitals Last Vital Signs Temp 98.2 F 07/12/21 12:00 Pulse 110 H 07/12/21 14:32 Resp 16 07/12/21 14:29 BP 124/75 07/12/21 12:00 Pulse Ox 94 07/12/21 14:29 Discharge Plan Discharge Patient Disposition: Home Condition: Stable Prescriptions: New prednisone 10 mg tablet See Rx Instructions .ROUTE .COMPLEX Qty: 36 0RF Rx Instructions: prednisone 5 mg: take 8 tablets (40 mg) on Day 1; 7 tablets (35 mg) on Day 2; then decrease by 1 tablet every day until finished Protonix 40 mg tablet,delayed release (DR/EC) 40 mg PO DAILY 28 Days Qty: 30 0RF Eliquis 2.5 mg tablet 2.5 mg PO BID 15 Days Qty: 30 0RF Advair Diskus 250-50 mcg/dose blister with device 1 inh inhalation BID 30 Days Qty: 60 0RF Spiriva with HandiHaler 18 mcg capsule, w/inhalation device 1 cap inhalation DAILY 30 Days Qty: 30 0RF Rx Instructions: puncture 1 cap using device; one dose = 2 inhalations Lasix 20 mg tablet 20 mg PO DAILY 7 Days Qty: 7 0RF Discharge Orders: Discharge Order (Routine); Ordered 07/12/21 Ordered By: Janneth Collier Other Ambulatory Orders: DME: Oxygen (Order) Location: None Selected Ordered By: Janneth Collier Referrals: Wandy Leon MD [Physician] - 4-7 days (Please call Dr. Leon' office on Tuesday and schedule an appointment to be seen within 7 days. ) Discharge Diet: Usual diet Discharge Activity: Resume usual activity Patient Instructions: Furosemide (By mouth), Prednisone (By mouth), Fluticasone (By breathing), Tiotropium (By breathing), Apixaban (By mouth), Using Oxygen at Home (DC), Hypoxia (GEN), COVID-19 (Coronavirus Disease 2019) (GEN), Opioid Safety Discharge Attestations Time Spent in Discharge Care*: greater than 30 min Quality Metrics Clinical Quality Measures [ No reported AMI, CVA or VTE this stay] Coding Level of Care Code Acute Chg FW DC note Diagnoses Acute respiratory failure with hypoxia J96.01 COVID-19 U07.1
== END 2021-07-12 14:54 | disposition home or self-care (01) | DRG 177 ==
LOC: ER 15:23 → ER IP 18:13 → ICU 18:31 → MEDSURG 07-06 15:11
PROVIDERS: Admitting Provider Internal Medicine; Emergency Provider Emergency Medicine; Visit Provider Student in an Organized Health Care Education/Training Program
DX: U07.1 COVID-19 (principal); J12.82 Pneumonia due to coronavirus disease 2019; J96.01 Acute respiratory failure with hypoxia; E87.6 Hypokalemia; R79.1 Abnormal coagulation profile; R60.0 Localized edema
CPT/HCPCS: 36415; 36600; 51702; 71045; 71275; 80053; 82803; 83735; 83880; 84100; 84145; 84484; 85025; 85378; 86140; 87635; 87804; 93005; 93306; 94640; 94664; 96360; 96361; 96372; 99285; C9113; J1100; J1650; J1940; J3262; J7040; J7626; Q9967

== ENCOUNTER → 2022-07-06 10:31 | Outpatient (BNVA) | payer MEDICARE, SELFPAY | PROVIDERS: PCP Family Medicine; Visit Provider Family Medicine | DX: I10 Essential (primary) hypertension (principal); K29.70 Gastritis, unspecified, without bleeding; Z13.220 Encounter for screening for lipoid disorders; Z13.6 Encounter for screening for cardiovascular disorders; R73.9 Hyperglycemia, unspecified; Z13.1 Encounter for screening for diabetes mellitus; J96.01 Acute respiratory failure with hypoxia; J30.2 Other seasonal allergic rhinitis; K29.30 Chronic superficial gastritis without bleeding | CPT/HCPCS: 80053; 80061; 83036; 85025 ==

== ENCOUNTER → 2023-07-19 10:13 | Outpatient (BNVA) | payer MEDICARE, SELFPAY | PROVIDERS: PCP Family Medicine; Visit Provider Family Medicine | DX: I10 Essential (primary) hypertension | CPT/HCPCS: 80053; 80061 ==

== ENCOUNTER → 2024-07-09 10:48 | Outpatient (BNVA) | payer MEDICARE, SELFPAY | PROVIDERS: PCP Family Medicine; Visit Provider Family Medicine | DX: I10 Essential (primary) hypertension (principal); K29.70 Gastritis, unspecified, without bleeding; J30.2 Other seasonal allergic rhinitis; L25.9 Unspecified contact dermatitis, unspecified cause; K29.30 Chronic superficial gastritis without bleeding; L30.1 Dyshidrosis [pompholyx]; Z13.1 Encounter for screening for diabetes mellitus; Z13.220 Encounter for screening for lipoid disorders; Z13.6 Encounter for screening for cardiovascular disorders | CPT/HCPCS: 80053; 80061 ==

== ENCOUNTER → 2024-12-25 09:13 | Outpatient (BNVA) | payer MEDICARE, SELFPAY | PROVIDERS: PCP Family Medicine; Visit Provider Family Medicine | DX: R68.89 Other general symptoms and signs (principal) | CPT/HCPCS: 87426 ==